=== PATIENT | female | born 1950 | race Caucasian/White ===

== ENCOUNTER → 2018-01-08 | Outpatient (CLI) | payer MEDICARE ==
[~2018-01-08] MED LIST: CARV25TA PO; DIGO125T87 PO; HYDR10SY17 PO; LEVO75TA10 PO; SPIR25TA6 PO; WARF7.5T49 PO
== END | disposition home or self-care (01) ==
LOC: SHCH 14:07
PROVIDERS: ATTEND Internal Medicine Cardiovascular Disease
DX: I50.32 Chronic diastolic (congestive) heart failure (principal); Z95.0 Presence of cardiac pacemaker
CPT/HCPCS: 93306

== ENCOUNTER 2018-01-18 07:52 | Inpatient (IN) | payer MEDICARE ==
[~2018-01-18] VITALS: Ht 179.1 cm; Wt 89.6 kg
[~2018-01-18 07:52] MED LIST changes: -HYDR10SY17 PO
[2018-01-18] MEDS ORDERED: SODIUM CHLORIDE 0.9% 1000ML 1,000 ML IV ONE (08:20)
[2018-01-18] MEDS ORDERED: ONDANSETRON HCL MDV 20ML 2 MG/ML VIAL ONE (08:20)
[2018-01-18] MEDS ORDERED: MORPHINE SULFATE 4 MG/1ML SYG ONE ×2 (08:20→09:05)
[2018-01-18 08:29] LABS: APPEARANCE,URINE CLEAR (CLEAR); BILIRUBIN,URINE NEGATIVE (NEGATIVE); COLOR,URINE YELLOW (YELLOW); GLUCOSE, URINE (UA) NEGATIVE (NEGATIVE); KETONES,URINE NEGATIVE (NEGATIVE); LEUKOCYTE ESTERASE ,URINE NEGATIVE (NEGATIVE); NITRATE,URINE NEGATIVE (NEGATIVE); OCCULT BLOOD,URINE SMALL (NEGATIVE); PROTEIN,URINE 100 (NEGATIVE); UROBILINOGEN,URINE 0.2 mg/dL (0.2-1.0)
[2018-01-18 08:33] LABS: CREATININE 1.2 mg/dL (0.5-1.5); POTASSIUM 4.3 mmol/L (3.5-5.1)
[2018-01-18 08:38] LABS: BACTERIA,URINE Rare /HPF (None Seen); RBC,URINE 0-1 /HPF (0-1); SQUAMOUS EPITHELIAL CELL,UR Rare /HPF (0-2); WBC,URINE 0-1 /HPF (0-1)
[2018-01-18 08:39] LABS: BILIRUBIN,TOTAL 1.2 mg/dL (0.2-1.0); TOTAL PROTEIN, SERUM 8.7 g/dL (6.0-8.3)
[2018-01-18 08:42] LABS: BASOPHILS % (AUTO) 0.5 % (0.0-5.0); EOSINOPHILS % (AUTO) 3.5 % (0.0-8.0); HEMATOCRIT 43.5 % (36-48); LYMPHOCYTES % (AUTO) 9.1 % (21.0-51.0); MEAN CORPUSCULAR HEMOGLOBIN 33.6 pg (27.0-33.0); MEAN CORPUSCULAR HGB CONC 34.2 g/dL (32.0-36.0); MEAN CORPUSCULAR VOLUME 98.3 fL (79-99); MONOCYTES % (AUTO) 5.8 % (3.0-13.0); NEUTROPHILS % (AUTO) 81.1 % (40.0-77.0); PLATELET COUNT (AUTO) 193 K/uL (130-400); RED BLOOD CELL COUNT(AUTO) 4.43 MIL/uL (4.00-5.50); RED CELL DISTRIBUTION WIDTH 13.8 % (11.0-15.5); WHITE BLOOD COUNT (AUTO) 8.4 K/uL (4.8-10.8)
[2018-01-18] MEDS ORDERED: IOPAMIDOL-370 75 ML VIAL IV ONE (09:06)
[2018-01-18 09:39] LABS: INR 1.66 (0.85-1.15); PARTIAL THROMBOPLASTIN TIME 30.9 SEC (26.3-35.5); PROTHROMBIN TIME 17.3 SEC (9.6-11.6)
[2018-01-18] MEDS ORDERED: LACTULOSE 20 GM/30 ML UDCUP PO PRN (11:15)
[2018-01-18] MEDS ORDERED: LIDOCAINE HCL-MPF 1% 2ML VIAL IVP PRN (11:15)
[2018-01-18] MEDS ORDERED: MAG HYDROX/AL HYDROX/SIMETH ES 30 ML SUSP UDCUP PO PRN (11:15)
[2018-01-18] MEDS ORDERED: MORPHINE SULFATE 4 MG/1ML SYG IV PRN (11:15)
[2018-01-18] MEDS ORDERED: NITROGLYCERIN 0.4 MG SL TAB SL PRN (11:15)
[2018-01-18] MEDS ORDERED: ACETAMINOPHEN 325 MG TAB PO PRN ×2 (11:15)
[2018-01-18] MEDS ORDERED: POTASSIUM CHLORIDE 20MEQ/100ML 100 ML IV PRN (11:15)
[2018-01-18] MEDS ORDERED: HYDRALAZINE HCL 20 MG/ML VIAL IV PRN (11:15)
[2018-01-18] MEDS ORDERED: ACETAMINOPHEN-CODEINE 300/30MG TAB PO PRN ×2 (11:15)
[2018-01-18] MEDS ORDERED: GUAIFENESIN-DM 200/20 MG 10 ML PO PRN (11:15)
[2018-01-18] MEDS ORDERED: POTASSIUM CHLORIDE 10% ELIXIR 20 MEQ/15 ML UDCUP PO PRN (11:15)
[2018-01-18 11:33] VITALS: BP 142/75
[2018-01-18] MEDS: MORPHINE SULFATE 4 MG/1ML SYG IV PRN (12:36)
[2018-01-18] MEDS: ONDANSETRON HCL 4 MG/2 ML VIAL IV PRN (12:36)
[2018-01-18] MEDS: SODIUM CHLORIDE 0.9% 1000ML 1,000 ML IV SCH ×2 (12:38→22:10)
[2018-01-18] MEDS: METOPROLOL TARTRATE 1 MG/ML 5ML VIAL IV SCH ×2 (13:00→20:32)
[2018-01-18 16:00] VITALS: BP 130/71
[2018-01-18 19:00] VITALS: BP 137/71
[2018-01-18] MEDS: ENOXAPARIN SODIUM 60 MG/0.6 ML SQ SCH (20:31)
[2018-01-18] MEDS: FAMOTIDINE/PF 20 MG/2 ML VIAL IV SCH (20:32)
[2018-01-18] MEDS: NEOMY SULF/BACITRA/POLYMYXIN B 1 EACH PACKET TP SCH (20:32)
[2018-01-18] MEDS ORDERED: ENOXAPARIN SODIUM 0.5 MG/KG EACH SQ SCH (21:00)
[2018-01-19] VITALS (7 sets, daily range): BP systolic 131–158; BP diastolic 63–68
[2018-01-19] MEDS: SODIUM CHLORIDE 0.9% 1000ML 1,000 ML IV SCH ×2 (00:59→23:55)
[2018-01-19] MEDS: METOPROLOL TARTRATE 1 MG/ML 5ML VIAL IV SCH ×4 (00:59→19:58)
[2018-01-19] MEDS: MORPHINE SULFATE 4 MG/1ML SYG IV PRN (02:31)
[2018-01-19] MEDS: ONDANSETRON HCL 4 MG/2 ML VIAL IV PRN (02:31)
[2018-01-19 06:01] LABS: HEMATOCRIT 38.3 % (36-48); MEAN CORPUSCULAR HEMOGLOBIN 34.9 pg (27.0-33.0); MEAN CORPUSCULAR HGB CONC 34.8 g/dL (32.0-36.0); PLATELET COUNT (AUTO) 174 K/uL (130-400); RED BLOOD CELL COUNT(AUTO) 3.83 MIL/uL (4.00-5.50); RED CELL DISTRIBUTION WIDTH 13.9 % (11.0-15.5); WHITE BLOOD COUNT (AUTO) 5.8 K/uL (4.8-10.8)
[2018-01-19 06:15] LABS: CREATININE 1.2 mg/dL (0.5-1.5); POTASSIUM 4.5 mmol/L (3.5-5.1)
[2018-01-19] MEDS ORDERED: ENOXAPARIN SODIUM 40 MG/0.4 ML SYRINGE SQ SCH (09:00)
[2018-01-19] MEDS: DIGOXIN 250 MCG/ML 2ML AMP IV SCH (09:30)
[2018-01-19] MEDS: ENOXAPARIN SODIUM 60 MG/0.6 ML SQ SCH ×2 (09:31→19:59)
[2018-01-19] MEDS: NEOMY SULF/BACITRA/POLYMYXIN B 1 EACH PACKET TP SCH ×2 (09:31→19:59)
[2018-01-19] MEDS: FAMOTIDINE/PF 20 MG/2 ML VIAL IV SCH (19:58)
[2018-01-20] MEDS ORDERED: LORAZEPAM 2 MG/ML 1 ML VIAL ONE (00:51)
[2018-01-20] MEDS: METOPROLOL TARTRATE 1 MG/ML 5ML VIAL IV SCH ×4 (00:55→19:06)
[2018-01-20] MEDS ORDERED: LORAZEPAM 2 MG/ML 1 ML VIAL IVP ONE ×2 (01:00→21:50)
[2018-01-20 03:30] VITALS: BP 149/66
[2018-01-20 04:31] LABS: BASOPHILS % (AUTO) 0.3 % (0.0-5.0); HEMATOCRIT 39.2 % (36-48); LYMPHOCYTES % (AUTO) 15.7 % (21.0-51.0); MEAN CORPUSCULAR VOLUME 100.2 fL (79-99); MONOCYTES % (AUTO) 17.4 % (3.0-13.0); NEUTROPHILS % (AUTO) 64.6 % (40.0-77.0); NUCLEATED RED BLOOD CELLS 0.1 % (0.0-0.19); PLATELET COUNT (AUTO) 166 K/uL (130-400); RED BLOOD CELL COUNT(AUTO) 3.92 MIL/uL (4.00-5.50); RED CELL DISTRIBUTION WIDTH 14.1 % (11.0-15.5); WHITE BLOOD COUNT (AUTO) 4.3 K/uL (4.8-10.8)
[2018-01-20 04:38] LABS: CREATININE 1.2 mg/dL (0.5-1.5); MAGNESIUM 1.6 mg/dL (1.80-2.40); POTASSIUM 4.2 mmol/L (3.5-5.1)
[2018-01-20] MEDS: SODIUM CHLORIDE 0.9% 1000ML 1,000 ML IV SCH ×4 (05:41→23:04)
[2018-01-20 08:17] VITALS: BP 153/70
[2018-01-20] MEDS: DIGOXIN 250 MCG/ML 2ML AMP IV SCH (09:28)
[2018-01-20] MEDS: ENOXAPARIN SODIUM 60 MG/0.6 ML SQ SCH ×2 (09:34→20:46)
[2018-01-20] MEDS: NEOMY SULF/BACITRA/POLYMYXIN B 1 EACH PACKET TP SCH ×2 (09:35→20:46)
[2018-01-20 12:04] VITALS: BP 152/72
[2018-01-20 15:58] VITALS: BP 144/65
[2018-01-20] MEDS ORDERED: PHENOL 177 ML BOTTLE PO PRN (16:30)
[2018-01-20 19:10] VITALS: BP 149/78
[2018-01-20] MEDS: FAMOTIDINE/PF 20 MG/2 ML VIAL IV SCH (20:43)
[2018-01-21] VITALS: BP 146/64
[2018-01-21] MEDS: METOPROLOL TARTRATE 1 MG/ML 5ML VIAL IV SCH ×2 (00:20→06:01)
[2018-01-21] MEDS: SODIUM CHLORIDE 0.9% 1000ML 1,000 ML IV SCH ×2 (02:45→06:02)
[2018-01-21 04:25] VITALS: BP 152/88
[2018-01-21 04:36] LABS: BASOPHILS % (AUTO) 0.3 % (0.0-5.0); EOSINOPHILS % (AUTO) 2.2 % (0.0-8.0); HEMATOCRIT 39.4 % (36-48); LYMPHOCYTES % (AUTO) 14.1 % (21.0-51.0); MEAN CORPUSCULAR HEMOGLOBIN 33.9 pg (27.0-33.0); MEAN CORPUSCULAR HGB CONC 33.6 g/dL (32.0-36.0); MEAN CORPUSCULAR VOLUME 100.9 fL (79-99); MONOCYTES % (AUTO) 13.5 % (3.0-13.0); NEUTROPHILS % (AUTO) 69.9 % (40.0-77.0); PLATELET COUNT (AUTO) 168 K/uL (130-400); RED BLOOD CELL COUNT(AUTO) 3.91 MIL/uL (4.00-5.50); RED CELL DISTRIBUTION WIDTH 14.3 % (11.0-15.5); WHITE BLOOD COUNT (AUTO) 5.2 K/uL (4.8-10.8)
[2018-01-21 04:45] LABS: CREATININE 1.1 mg/dL (0.5-1.5); MAGNESIUM 1.7 mg/dL (1.80-2.40); POTASSIUM 3.6 mmol/L (3.5-5.1)
[2018-01-21 08:00] VITALS: BP 155/77
[2018-01-21] MEDS: NEOMY SULF/BACITRA/POLYMYXIN B 1 EACH PACKET TP SCH ×2 (09:00→22:34)
[2018-01-21] MEDS: DIGOXIN 250 MCG/ML 2ML AMP IV SCH (10:19)
[2018-01-21] MEDS: ENOXAPARIN SODIUM 60 MG/0.6 ML SQ SCH (10:19)
[2018-01-21] MEDS: DEXTROSE 5 %-0.45 % NACL 1,000 ML IV SCH ×2 (10:20→18:07)
[2018-01-21] MEDS ORDERED: HYDR10SY17 PO (10:36)
[2018-01-21 11:38] VITALS: BP 151/76
[2018-01-21] MEDS ORDERED: HYDROXYZINE HCL 10MG/5ML SYRUP 5ML BOTTLE PO PRN (12:45)
[2018-01-21 15:46] VITALS: BP 157/72
[2018-01-21 19:22] VITALS: BP 159/62
[2018-01-21] MEDS ORDERED: ENOXAPARIN SODIUM 1 MG/KG SQ SCH (21:00)
[2018-01-21] MEDS: ENOXAPARIN SODIUM 100 MG/1 ML SQ SCH (21:26)
[2018-01-21] MEDS: CARVEDILOL 25 MG TABLET PO SCH (21:28)
[2018-01-21] MEDS ORDERED: LORAZEPAM 2 MG/ML 1 ML VIAL IVP ONE (22:15)
[2018-01-21] MEDS ORDERED: LORAZEPAM 2 MG/ML 1 ML VIAL ONE (22:22)
[2018-01-21] MEDS: FAMOTIDINE/PF 20 MG/2 ML VIAL IV SCH (22:32)
[2018-01-22] VITALS (7 sets, daily range): BP systolic 128–141; BP diastolic 60–79
[2018-01-22] MEDS: DEXTROSE 5 %-0.45 % NACL 1,000 ML IV SCH ×2 (02:31→15:20)
[2018-01-22 05:01] LABS: CREATININE 1.1 mg/dL (0.5-1.5); POTASSIUM 3.1 mmol/L (3.5-5.1)
[2018-01-22] MEDS: POTASSIUM CHLORIDE 20 MEQ ERTAB PO PRN ×3 (06:16→18:06)
[2018-01-22] MEDS: LEVOTHYROXINE 75 MCG TABLET PO SCH (07:30)
[2018-01-22] MEDS: CARVEDILOL 25 MG TABLET PO SCH ×2 (09:48→21:51)
[2018-01-22] MEDS: SPIRONOLACTONE 25 MG TAB PO SCH (09:49)
[2018-01-22] MEDS: DIGOXIN 125 MCG TABLET PO SCH (09:49)
[2018-01-22] MEDS: ENOXAPARIN SODIUM 100 MG/1 ML SQ SCH ×2 (09:51→21:59)
[2018-01-22] MEDS: NEOMY SULF/BACITRA/POLYMYXIN B 1 EACH PACKET TP SCH ×2 (09:53→21:00)
[2018-01-22] MEDS: MAGNESIUM 2GM PREMIX 50ML 50 ML IV SCH (15:30)
[2018-01-22] MEDS ORDERED: WARFARIN SODIUM 7.5 MG TAB PO SCH (17:00)
[2018-01-22] MEDS: FAMOTIDINE/PF 20 MG/2 ML VIAL IV SCH (21:51)
[2018-01-23] MEDS: DEXTROSE 5 %-0.45 % NACL 1,000 ML IV SCH (03:13)
[2018-01-23 04:25] VITALS: BP 135/70
[2018-01-23 05:11] LABS: CREATININE 1.1 mg/dL (0.5-1.5); MAGNESIUM 1.9 mg/dL (1.80-2.40); POTASSIUM 3.7 mmol/L (3.5-5.1)
[2018-01-23 08:04] VITALS: BP 127/70
[2018-01-23] MEDS: CARVEDILOL 25 MG TABLET PO SCH (08:26)
[2018-01-23] MEDS: DIGOXIN 125 MCG TABLET PO SCH (08:26)
[2018-01-23] MEDS: SPIRONOLACTONE 25 MG TAB PO SCH (08:26)
[2018-01-23] MEDS: LEVOTHYROXINE 75 MCG TABLET PO SCH (08:26)
[2018-01-23] MEDS: ENOXAPARIN SODIUM 100 MG/1 ML SQ SCH (08:27)
[2018-01-23] MEDS: MAGNESIUM 2GM PREMIX 50ML 50 ML IV SCH (08:30)
[2018-01-23] MEDS: NEOMY SULF/BACITRA/POLYMYXIN B 1 EACH PACKET TP SCH (08:43)
[2018-01-23 10:56] VITALS: BP 129/65
== END 2018-01-23 11:10 | disposition home or self-care (01) | DRG 389 ==
LOC: EDH 07:52 → EDHIP 10:34 → 3CH 11:15
PROVIDERS: ADMIT Internal Medicine; ATTEND Internal Medicine
DX: K56.609 Unspecified intestinal obstruction, unspecified as to partial versus complete obstruction (principal); D68.69 Other thrombophilia; I48.91 Unspecified atrial fibrillation; Z93.3 Colostomy status; Z79.01 Long term (current) use of anticoagulants; E03.9 Hypothyroidism, unspecified; L40.9 Psoriasis, unspecified; Z85.048 Personal history of other malignant neoplasm of rectum, rectosigmoid junction, and anus; Z87.891 Personal history of nicotine dependence; Z90.49 Acquired absence of other specified parts of digestive tract; Z90.710 Acquired absence of both cervix and uterus; Z92.3 Personal history of irradiation; Z95.2 Presence of prosthetic heart valve
CPT/HCPCS: 36415; 74021; 74178; 80048; 80053; 80162; 81001; 82150; 83690; 83735; 84100; 85025; 85027; 85610; 85730; 93005; J0360; J1160; J1650; J2060; J2270; J2405; J3475; J3490; J7030; J7042; Q9967

== ENCOUNTER → 2018-01-29 | Outpatient (CLI) | payer MEDICARE ==
[~2018-01-29] MED LIST changes: +HYDR10SY17 PO
== END | disposition home or self-care (01) ==
LOC: SHCH 15:44
PROVIDERS: ATTEND Internal Medicine Cardiovascular Disease
DX: I87.2 Venous insufficiency (chronic) (peripheral) (principal)
CPT/HCPCS: 93970